=== PATIENT | male | born 1955 | race Caucasian/White ===

== ENCOUNTER → 2016-11-11 | Outpatient (CLI) | payer MEDICARE, OTHER ==
[~2016-11-11] MED LIST: ALBUTEROL MININEB NEB; ARTIFICIAL TEAR15 M9 OU; BROVANA15 MCG/2 M INH; BUDESONIDE0.5 MG/2 M INH; CARDURA1 M1 GT; CUVPOSA1 MG/5 ML PEG; DIAPER RASH TOP; DIASTAT2.5 MG PR; GAVILYTE-C SO4000 ML PO; HALOPERIDOL5 MG/1 ML INJ; HYDROMORPHO SUBQ; IPRATROPIU0.2 MG/1 M PO; LORAZEPAM2 MG/1 M3 SUBQ; NEXIUM40 M1; NILSTAT PO; POTASSIUM20 MEQ/11 DOB; ROBINUL IM; SINGULAIR PO; SPRITAM1000 MG GT; TYLENOL325 MG/10. PEG; UNITHROID125 MCG PO; ZESTRIL5 MG PO; [UNRECOGNIZED DRUG - OTHER]; [UNRECOGNIZED DRUG - OTHER] TOP
== END | disposition home or self-care (01) ==
LOC: CRAD 10-21 10:00
DX: R13.10 Dysphagia, unspecified (principal)
CPT/HCPCS: 74230; 92611; G8996-GN; G8997-GN; G8998-GN

== ENCOUNTER → 2016-11-22 | Outpatient (CLI) | payer MEDICARE, OTHER ==
--- NOTE | ~2016-11-22 | XA189 ---
[facility] A Service of [facility] & [facility] RADIOLOGY TEXT RESULTS PATIENT: TIA MARTINEZ LOCATION: CIVR : 51 UNIT #: [id number] AGE: [address]: ANILA WRIGHT SEX: M ORDER DR: [id number] [facility] [address] [place], [place] [address] [id number] O MR#: [id number] Acc #: [id number] NAME: TIA MARTINEZ : 1955 SEX: M STUDY DATE/TIME: 11/22/2016 12:15 UNIT: CIVR ROOM: STUDY DESCRIPTION: XA Replace GJ Tube Attending Physician: Anila Wright Referring Physician: Anila Wright Primary Care Physician: Anila Wright MEDICAL IMAGING REPORT This report is preliminary unless electronic signature is present EXAM Gastrojejunostomy tube replacement. INDICATION This patient was transferred from [place] for removal of his gastrojejunostomy catheter and replacement with a gastrostomy catheter. 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 Informed consent was obtained and prior to initiating the procedure, a formal time-out procedure was performed. Using all elements of maximal sterile barrier technique including hand hygiene, caps, sterile gowns, and gloves and masks, the abdomen was prepped with 2% Chlorhexidine for cutaneous antisepsis and covered with a large sterile sheet. Preliminary image was obtained this showed a preexisting gastrojejunostomy tube. Contrast was injected through the gastrostomy port which confirmed location within the stomach. The jejunostomy port I think is probably clogged. Glidewire was advanced through the gastrostomy port. Catheter was removed over the wire and a new gastrostomy tube was positioned within the stomach. Patient incidentally was noted to have reflux of contrast material into the esophagus. Total fluoroscopy time was 1.2 minutes. A total of 7 fluoroscopic images were obtained. Patient received moderate sedation consisting of 2 mg of Versed and 50 mcg of fentanyl. I supervised the IVR nurse and monitored the patient's final signs for a total of 2 minutes face to face time. IMPRESSION Successful replacement of this patient's gastrojejunostomy tube with a gastrostomy tube. As noted above, fluoroscopy was used during the procedure and permanent images were saved. The patient was incidentally STS. [facility] A Service of [facility] & [facility] RADIOLOGY TEXT RESULTS PATIENT: TIA MARTINEZ LOCATION: [facility] : 51 UNIT #: [id number] AGE: [address]: ANILA WRIGHT SEX: M ORDER DR: noted to have spontaneous reflux of contrast material into the esophagus. Dictated by... Bing Damian M.D. THIS IS AN ELECTRONICALLY VERIFIED REPORT Bing Damian M.D. at 11/25/2016 7:30 AM RUDDY/bridgette TD: 11/24/2016 12:59 JOB #: [id number] MEDICAL IMAGING REPORT Page 1 of 1 COPY
== END | disposition home or self-care (01) ==
LOC: CIVR 10:12
DX: Z43.1 Encounter for attention to gastrostomy (principal)
CPT/HCPCS: C1769; J2250; J3010; Q9965